=== PATIENT | male | born 1995 | race Caucasian/White ===

== ENCOUNTER 2016-10-10 20:37 | Emergency (ER) | payer SELFPAY ==
[~2016-10-10] VITALS: Ht 210.8 cm; Wt 68.0 kg
[~2016-10-10 20:37] MED LIST: AMOXICILLIN500 M3 PO; AMOXICILLIN500 MG PO; BENADRYL25 M2 PO; CEPHALEXIN500 M1 PO; CIPRO250 MG PO; CLARITIN-D 12 H1 TAB PO; CLARITIN10 MG PO; CYCLOBENZAPRINE10 MG PO; FLONASE 0.05% 121 EA NAS; HYDROCODONE BIT1 T11 PO; IBU-6600 MG PO; KEFLEX500 MG PO; MOTRIN800 MG PO; NAPROSYN500 MG PO; NORCO 325 MG-51 TAB PO; PREDNICOT10 MG PO; PREDNISONE20 M1 PO; ULTRAM50 MG PO; ZITHROMAX250 MG PO; ZYRTEC10 M1 PO
== END 2016-10-10 21:35 | disposition home or self-care (01) ==
LOC: ED 20:37
DX: S99.911A Unspecified injury of right ankle, initial encounter (principal); F17.200 Nicotine dependence, unspecified, uncomplicated; W17.81XA Fall down embankment (hill), initial encounter; Y93.89 Activity, other specified; Y92.828 Other wilderness area as the place of occurrence of the external cause; Y99.9 Unspecified external cause status

== ENCOUNTER 2016-10-14 13:38 | Emergency (ER) | payer SELFPAY ==
[~2016-10-14] VITALS: Ht 177.8 cm; Wt 68.0 kg
[2016-10-14] MEDS ORDERED: NAPROSYN500 MG PO (14:00)
== END 2016-10-14 14:19 | disposition home or self-care (01) ==
LOC: ED 13:38
DX: S93.401A Sprain of unspecified ligament of right ankle, initial encounter (principal); R03.0 Elevated blood-pressure reading, without diagnosis of hypertension; F17.200 Nicotine dependence, unspecified, uncomplicated; X58.XXXA Exposure to other specified factors, initial encounter; Y93.89 Activity, other specified; Y92.89 Other specified places as the place of occurrence of the external cause; Y99.9 Unspecified external cause status

== ENCOUNTER 2021-02-05 11:18 | Emergency (ER) | payer OTHER ==
[~2021-02-05] VITALS: Wt 65.8 kg
[2021-02-05] MEDS ORDERED: Motrin,Rufen800 MG PO (11:37)
[2021-02-05] MEDS ORDERED: AUGMENTIN 875875 MG PO (11:37)
== END 2021-02-05 12:11 | disposition home or self-care (01) ==
LOC: ED 11:18
DX: J32.9 Chronic sinusitis, unspecified (principal); K08.89 Other specified disorders of teeth and supporting structures; Z79.899 Other long term (current) drug therapy

== ENCOUNTER → 2021-06-22 | Outpatient (CLI) | payer OTHER ==
[~2021-06-22] MED LIST changes: +AUGMENTIN 875875 MG PO; +Motrin,Rufen800 MG PO
== END | disposition home or self-care (01) ==
LOC: COVID19 16:52
PROVIDERS: ATTEND Internal Medicine
DX: Z11.52 Encounter for screening for COVID-19 (principal)

== ENCOUNTER 2021-08-30 06:33 | Emergency (ER) | payer OTHER ==
[~2021-08-30] VITALS: Ht 177.8 cm; Wt 70.3 kg
[2021-08-30] MEDS ORDERED: AUGMENTIN 875875 MG PO (06:48)
== END 2021-08-30 07:02 | disposition home or self-care (01) ==
LOC: ED 06:33
DX: J01.90 Acute sinusitis, unspecified (principal)

== ENCOUNTER 2022-05-14 13:08 | Emergency (ER) | payer OTHER ==
[~2022-05-14] VITALS: Ht 172.7 cm; Wt 65.8 kg
[2022-05-14] MEDS ORDERED: AMOXICILLIN500 M2 PO (14:07)
== END 2022-05-14 14:17 | disposition home or self-care (01) ==
LOC: ED 13:08
DX: K02.9 Dental caries, unspecified (principal)

== ENCOUNTER 2022-06-07 13:09 | Emergency (ER) | payer OTHER ==
[~2022-06-07] VITALS: Wt 65.8 kg
[~2022-06-07 13:09] MED LIST changes: +AMOXICILLIN500 M2 PO
[2022-06-07 14:56] LABS: BASO # 0.1 10*3/uL (0.0-0.1); BASO % 0.6 % (0.0-1.0); EOS # 0.2 10*3/uL (0.0-0.4); EOS % 1.9 % (1.0-4.0); HEMATOCRIT 44.9 % (42.0-52.0); LYMPH # 2.8 10*3/uL (1.3-4.4); LYMPH % 29.2 % (27.0-41.0); MEAN CELL VOLUME 90.7 fl (80.0-94.0); MEAN CORPUSCULAR HGB 31.5 pg (27.0-31.0); MEAN CORPUSCULAR HGB CONC 34.7 g/dl (33.0-37.0); MEAN PLATELET VOLUME 9.3 fl (9.6-12.3); MONO # 0.7 10*3/uL (0.1-1.0); MONO % 7.2 % (3.0-9.0); NEUT # 5.7 10*3/uL (2.3-7.9); NEUT % 60.9 % (47.0-73.0); PLATELET COUNT AUTOMATED 291 10*3/uL (130-400); RED BLOOD COUNT 4.95 10*6/uL (4.50-5.90); RED CELL DISTRI WIDTH 11.9 % (0-14.5); WHITE BLOOD COUNT 9.4 10*3/uL (4.8-10.8)
[2022-06-07 15:12] LABS: ALKALINE PHOSPHATASE 151 U/L (45-117); BUN 8 mg/dl (7-24); CHLORIDE 108 mmol/L (98-107); CREATININE 0.85 mg/dL (0.70-1.30); POTASSIUM 4.8 mmol/L (3.5-5.1); SGOT/AST 24 IU/L (3-35); SGPT/ALT 13 U/L (12-78); SODIUM 136 mmol/L (136-145); TOTAL PROTEIN 7.4 gm/dL (6.4-8.2)
[2022-06-07] MEDS ORDERED: AMOX-CLAV 875-1 EACH PO (16:05)
== END 2022-06-07 16:17 | disposition home or self-care (01) ==
LOC: ED 13:09
PROVIDERS: Nurse Practitioner Family
DX: K02.9 Dental caries, unspecified (principal); R59.0 Localized enlarged lymph nodes

== ENCOUNTER 2022-09-05 14:31 | Emergency (ER) | payer SELFPAY ==
[~2022-09-05 14:31] MED LIST changes: +AMOX-CLAV 875-1 EACH PO
== END 2022-09-05 19:12 | disposition left against medical advice (07) ==
LOC: ED 14:31
DX: Z53.21 Procedure and treatment not carried out due to patient leaving prior to being seen by health care provider (principal)

== ENCOUNTER 2024-05-27 20:26 | Emergency (ER) | payer MEDICAID ==
[~2024-05-27] VITALS: Ht 172.7 cm; Wt 65.8 kg
== END 2024-05-27 22:57 | disposition home or self-care (01) ==
LOC: ED 20:26
DX: T40.411A Poisoning by fentanyl or fentanyl analogs, accidental (unintentional), initial encounter (principal); R68.83 Chills (without fever); Z79.2 Long term (current) use of antibiotics; Y92.89 Other specified places as the place of occurrence of the external cause